=== PATIENT | male | born 2005 | race African-American/Black ===

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

== ENCOUNTER 2025-02-18 03:07 | Emergency (ER) | payer SELFPAY ==
--- OUTSIDE RECORDS SUMMARY | 2025-02-18 03:09 | XMS_ITS | Clinical Summary ---
Author Organization [facility] Address [facility] [place] [address] Care Team Providers Care Skate Shop Attendant Name Role Phone Unavailable Primary Care Provider Unavailabl e Social History Tobacco Use Types Packs/Day Years Used Date Smoking Tobacco: Never Assessed Sex and Gender Information Value Date Recorded Sex Assigned at Not on file Legal Sex Male 4:06 PM CDT Gender Identity Not on file Sexual Orientation Not on file Plan of Treatment Health Maintenance Due Date Last Done Comments Annual Physical 2007 HPV Vaccines (1 - Male 3-dos e series) 2019 Meningococcal B Vaccine (1 o f 2 - Standard) 2020 Hepatitis C 2022 DTaP, Tdap and Td Vaccines ( 1 - Tdap) 2023 Hepatitis B Vaccines (1 of 3 - 19+ 3-dose series) 2023 COVID-19 Vaccine (1 - 2024-2 6 season) 2024 Influenza Adult (#1) 2025 Hepatitis A Vaccines Aged Out No long er eligible based on patient's age to complete this topic Meningococcal Vaccine Aged Out No emory soledad eligible based on patient's age to complete this topic Pneumococcal Vaccine: Pediat rics (0 to 5 Years) and At-Risk Patients (6 to 49 Years) Aged Out No longer eligible b ased on patient's age to complete this topic RSV Immunizations Under 20 Months Aged Out No longer eligible based on patient's age to complete this topic
--- OUTSIDE RECORDS SUMMARY | 2025-02-18 03:09 | XMS_ITS | Patient Health Record ---
Author Organization [facility] Address [address] [place] [address] Care Team Providers Care Curam Developer Name Role Phone Castillo Keeneie Primary Care Provider [phone] Judi Newell Unavailable [phone] Allergies No Known Allergies Reason For Referral No Information Medications Medication SIG (Take, Route, Fr equency, Duration) Notes Start Date End Date Status Atomoxetine HCl 40 MG 1 capsule in the m orning Orally Once a day; Duration: 30 days 07/06/2022 Active Social History Tobacco Use: Social History Observation Description Date Details (start date - stop date) Current Smoker NA - NA Sex Assigned At : Social History Observation Description Sex Assigned At Male Dont use, Tobacco Use/Smoking Question Answer Notes Are you a current smoker Alcohol Screen (Audit-C) Question Answer Notes Did you have a drink containing alcohol in the p ast year? Yes Problems Problem Type SNOMED Code ICD Code Onset Dates Problem Status W/U Status Risk Notes Problem Tobacco user (555534397) Nicotine dependence, unspecified, uncomplicated (F17.200) Active confirmed Problem Attention deficit hyperactivity disorder (102394701) ADHD (attention deficit hyperactivity disorder) (F90.9) Active confirmed Plan Of Treatment No Information Insurance Providers Payer Name Payer Address Payer Phone Subscriber Number Group Number Insured Name Patient Relationship to Insured Coverage Start Date Coverage End Date [address] [phone] [id number] Drake Rosa Self - patient is the insured 3 Medical (General) History Medical History History ICD Code ADHD Surgical History Surgery Date(Month/Year) Hospitalization History Reason Date(Month/Year) Involuntary psychiatric hold 2014
--- OUTSIDE RECORDS SUMMARY | 2025-02-18 03:09 | XMS_ITS | Clinical Summary ---
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 Gender Identity Not on file Sexual Orientation Not on file Last Filed Vital Signs Vital Sign Reading Time Taken Comments Blood Pressure 118/66 10/14/2022 9:58 AM CDT Pulse 70 10/14/2022 9:58 AM CDT Temperature 36.3 C (97.4 F) 10/14/2022 9:58 AM CDT Respiratory Rate 18 10/14/2022 9:58 AM CDT Oxygen Saturation 98% 10/14/2022 9:58 AM CDT Inhaled Oxygen Concentration - - Weight 71.3 kg (157 lb 3.2 oz) 10/14/2022 9:58 A M CDT Height 165.1 cm (5' 5) 10/14/2022 9:58 AM CDT Body Mass Index 26.16 10/14/2022 9:58 AM CDT Plan of Treatment Health Maintenance Due Date Last Done Comments Depression Screening 2004 Hepatitis C Screening 2004 DTaP/Tdap/Td Vaccine (1 - Tdap) 2015 Varicella Vaccines (1 of 2 - 13+ 2-dose series) 2017 HPV Vaccines (1 - Male 3-dos e series) 2019 Meningococcal B Vaccine (1 o f 2 - Standard) 2020 Hepatitis B Screening 2022 Regular Well Visit/Exam 18-64 2022 Covid-19 Vaccine (3 - 2024-2 6 season) 2024 03/06/2021, 02/12/2021 Influenza Vaccine (#1) 2024 Meningococcal Vaccine Aged Out No emory soledad eligible based on patient's age to complete this topic Pneumococcal vaccine <65 Aged Out No longer eligible based on patient's age to complete this topic Care Teams Bacon De Rinder Relationship Specialty Start Date End Date No, Physician PCP - General 02/17/25
--- OUTSIDE RECORDS SUMMARY | 2025-02-18 03:09 | XMS_ITS | Clinical Summary ---
Author Organization [facility] Address [address] [place] [address] Care Team Providers Care Specialties Operator Name Role Phone Devin Holley MD Primary Care Provider [phone] Source Comments [facility],non-owned Affiliates and Associated Physician Practices is amultiple site organization consisting of ambulatory clinics and hospital sitesin [place], [place], [place] and [place]. This disclosure is being madepursuant to the Care Everywhere program and may not contain all information available regarding this patient. Last updated 18.[facility] [employer] Allergies No known active allergies Medications * Be aware that medications may not be up to date on this document. Alwaysverify current medications with the patient. 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 Gender Identity Not on file Sexual Orientation Not on file Last Filed Vital Signs Vital Sign Reading Time Taken Comments Blood Pressure 118/80 06/03/2021 8:24 AM SPEAKER WIRER Pulse 90 06/03/2021 8:24 AM SPEAKER WIRER Temperature 36.6 C (97.9 F) 07/03/2017 4:17 PM CDT Respiratory Rate 16 06/03/2021 8:24 AM SPEAKER WIRER Oxygen Saturation 97% 06/03/2021 8:24 AM SPEAKER WIRER Inhaled Oxygen Concentration - - Weight 66.5 kg (146 lb 9.7 oz) 06/03/2021 8:24 A M SPEAKER WIRER Height 169.7 cm (5' 6.81) 06/03/2021 8:24 AM CS T Body Mass Index 23.09 06/03/2021 8:24 AM SPEAKER WIRER Plan of Treatment Health Maintenance Due Date Last Done Comments HIV SCREENING 2019 HPV VACCINE (1 - Male 3-dose series) 2019 MENINGOCOCCAL (Group B) VACC INE SHARED DECISION-MAKING (1 of 2 - Standard) 2020 HEPATITIS C SCREENING 04/29/2022 DTAP/TDAP/TD VACCINES (1 - Tdap) 2023 HEPATITIS B VACCINE (1 of 3 - 19+ 3-dose series) 2023 DEPRESSION SCREENING 04/17/2024 COVID-19 VACCINE (1 - 2023-2 5 season) 2024 INFLUENZA VACCINE (#1) 2024 ZOSTER VACCINE (1 of 2) 2054 HIB VACCINE Aged Out No longer eligi ble based on patient's age to complete this topic MENINGOCOCCAL GROUPS A/C/Y/W VACCINE Aged Out No longer eligible b ased on patient's age to complete this topic PNEUMOCOCCAL VACCINE Aged Out No long er eligible based on patient's age to complete this topic Insurance [facility] Care Teams Specialties Operator Relationship Specialty Start Date End Date Devin Holley MD [facility] [address] [address] PCP - General Pediatrics 07/03/17
[2025-02-18 03:10] VITALS: BP 142/70; PULSE 68; RESP 20; TEMP 36.7; O2SAT 100
[2025-02-18 07:09] VITALS: BP 136/83; PULSE 82; RESP 16; O2SAT 100
[2025-02-18] MEDS: KETOROLAC 30 MG/ML VIAL (*BKC) IM (07:34)
--- NOTE | 2025-02-18 07:36 | ED_ITS ---
HPI - General Adult General Chief complaint: Unspecified Stated complaint: swollen gland Time Seen by Provider: 02/18/25 07:01 History of Present Illness HPI narrative: For last 2 days patient has had this sore throat, worse on right side; he did have an amoxicillin left over at home and tried taking it. No significant pain with swallowing or breathing, he did tried making an appointment with ENT but it is not until next week Related Data Allergies Allergy/AdvReac Type Severity Reaction Status Date / Time No Known Allergies Allergy Verified 02/18/25 07:09 Review of Systems Review of Systems: All systems reviewed & are unremarkable except as noted in HPI and below PMFSH Past Medical History Medical History No pertinent past medical history Surgical History Surgical History No pertinent past surgical history Family History Family History Father Cerebrovascular accident Social History Social History Smoking status: Never smoker Alcohol intake: never Substance use: never Living arrangements: with family Occupation/Education: student Gender identity (if verbalized by the patient): Male Exam Narrative: EXAMINATION OF ORGAN SYSTEMS/BODY AREAS: Constitutional: Vital signs per nursing GENERAL:[No acute distress, non-toxic appearing.] HEAD: Normal with no signs of head trauma. EYES: EOMI, conjunctiva normal ENT: No trismus, no uvular deviation, on the right tonsil there appears to be a greyish lesion that appears like an ulcer LUNGS: Nonlabored breathing. HEART: [Regular rate and rhythm] ABD: [Soft], [nontender to palpation] EXT: Normal range of motion SKIN: [No rashes or lesions.] NEURO: [Alert and oriented x 3. No gross focal sensory or strength deficits.] PSYCH: Normal affect Course Vital Signs Vital signs: Vital Signs Temperature 98.1 F 02/18/25 03:10 Pulse Rate 68 02/18/25 03:10 Respiratory Rate 20 02/18/25 03:10 Blood Pressure 142/70 H 02/18/25 03:10 Pulse Oximetry 100 02/18/25 03:10 Oxygen Delivery Room Air 02/18/25 03:10 Temperature 98.1 F 02/18/25 03:10 Pulse Rate 82 02/18/25 07:09 Respiratory Rate 16 02/18/25 07:09 Blood Pressure 136/83 02/18/25 07:09 Pulse Oximetry 100 02/18/25 07:09 Oxygen Delivery Room Air 02/18/25 03:10 Medical Decision Making MDM Narrative Medical decision making narrative: Patient presenting with sore throat, on exam he does have some tonsillar swelling and redness, and on the right tonsil does appear to be agree ulcer, I did attempt to see if it was a stone that could be dislodged with gentle pressure from Q-tip but it does appear to be more consistent with ulcer. Strep swabs are negative, however given the appearance, I will treat him with NSAIDs and antibiotics, he is otherwise very well appearing without any difficulty swallowing or breathing, no trismus, no uvular deviation or red flag symptoms, will have him follow-up with ENT in the next 1-2 days with strict return precautions and patient is agreeable to this plan. Vital Signs Vital Signs: Vital Signs Temperature 98.1 F 02/18/25 03:10 Pulse Rate 68 02/18/25 03:10 Respiratory Rate 20 02/18/25 03:10 Blood Pressure 142/70 H 02/18/25 03:10 Pulse Oximetry 100 02/18/25 03:10 Oxygen Delivery Room Air 02/18/25 03:10 Temperature 98.1 F 02/18/25 03:10 Pulse Rate 82 02/18/25 07:09 Respiratory Rate 16 02/18/25 07:09 Blood Pressure 136/83 02/18/25 07:09 Pulse Oximetry 100 02/18/25 07:09 Oxygen Delivery Room Air 02/18/25 03:10 Lab Data Labs: Lab Results 02/18/25 Range/Units 07:08 Influenza A (RT-PCR) Pending Influenza B (RT-PCR) Pending RSV (RT-PCR) Pending SARS-CoV-2 RNA (RT-PCR) Pending Group A Strep (PCR) Not detected (Negative) Discharge Plan Discharge Clinical Impression: Ulcer of tonsil Patient Disposition: Home Condition: Stable Instructions: Antibiotic Form, Tonsillitis (ED) Additional Instructions: Please follow-up with ENT, if you start having worsening symptoms especially if you cannot breathe or swallow or open your mouth, return to the ER immediately. Patient Language: Ukrainian Prescriptions: New ibuprofen 600 mg tablet 600 mg PO TID PRN (Reason: fever or pain) Qty: 30 0RF amoxicillin-pot clavulanate 875-125 mg tablet 1 tablet PO Q12H Qty: 14 0RF No Action prednisone 20 mg tablet 20 mg PO DAILY Qty: 5 0RF hydrocortisone [Anusol-HC] 2.5 % cream with perineal applicator 1 applic RECTAL DAILY PRN (Reason: hemorrhoids) Qty: 30 0RF Follow-up/Referrals: Linus Villarreal MD [Physician, Ear, Nose, Throat] - 2 Days UNKNOWN,DOCTOR [Primary Care Provider] Stand Alone Forms: Work/School Release IP
[2025-02-18 07:38] LABS: Strep Group A RT-PCR NOT DETECTED (Negative)
[2025-02-18 07:50] LABS: Influenza A QL RT-PCR Negative (Negative); Influenza B QL RT-PCR Negative (Negative); RSV RNA, RT-PCR Negative (Negative); SARS-CoV-2 RNA PCR Negative (Negative)
--- OUTSIDE RECORDS SUMMARY | 2025-02-18 08:02 | XMS_ITS | Clinical Summary ---
Author Organization [facility] Address [address] [place] [address] Care Team Providers Care Counselor Marriage And Family Name Role Phone Devin Holley MD Primary Care Provider [phone] Source Comments [facility],non-owned Affiliates and Associated Physician Practices is amultiple site organization consisting of ambulatory clinics and hospital sitesin [place], [place], [place] and [place]. This disclosure is being madepursuant to the Care Everywhere program and may not contain all information available regarding this patient. Last updated 18.[facility] 1calendar Allergies No known active allergies Medications * Be aware that medications may not be up to date on this document. Alwaysverify current medications with the patient. 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 Gender Identity Not on file Sexual Orientation Not on file Last Filed Vital Signs Vital Sign Reading Time Taken Comments Blood Pressure 118/80 06/03/2021 8:24 AM HOUSEKEEPING AIDE Pulse 90 06/03/2021 8:24 AM HOUSEKEEPING AIDE Temperature 36.6 C (97.9 F) 07/03/2017 4:17 PM CDT Respiratory Rate 16 06/03/2021 8:24 AM HOUSEKEEPING AIDE Oxygen Saturation 97% 06/03/2021 8:24 AM HOUSEKEEPING AIDE Inhaled Oxygen Concentration - - Weight 66.5 kg (146 lb 9.7 oz) 06/03/2021 8:24 A M HOUSEKEEPING AIDE Height 169.7 cm (5' 6.81) 06/03/2021 8:24 AM CS T Body Mass Index 23.09 06/03/2021 8:24 AM HOUSEKEEPING AIDE Plan of Treatment Health Maintenance Due Date [...] patient's age to complete this topic Insurance [facility] Care Teams Counselor Marriage And Family Relationship Specialty Start Date End Date Devin Holley MD [facility] [address] [address] PCP - General Pediatrics 07/03/17
--- OUTSIDE RECORDS SUMMARY | 2025-02-18 08:02 | XMS_ITS | Clinical Summary ---
Author Organization [facility] Address [address] [place] [address] Phone Care Team Providers Care Breast Buffer Name Role Phone No, Physician Primary Care Provider [phone] Allergies No known active allergies Medications No known medications Active Problems No known active problems Immunizations Immunization Administration Dates Next Due PPD TEST 10/14/2022 Social History Tobacco Use Types Packs/Day Years Used Date Smoking Tobacco: Never Assessed Sex and Gender Information Value Date Recorded Sex Assigned at Not on file Legal Sex Male 1:[address]GE Gender Identity Not on file Sexual Orientation [...] age to complete this topic Care Teams Breast Buffer Relationship Specialty Start Date End Date No, Physician PCP - General 02/17/25
[2025-02-18 08:17] VITALS: BP 146/82; PULSE 89; RESP 16; TEMP 36.8; O2SAT 99
== END 2025-02-18 08:18 | disposition home or self-care (01) ==
LOC: ANHED 07:56
PROVIDERS: Student in an Organized Health Care Education/Training Program; Emergency Provider Emergency Medicine
DX: J35.8 Other chronic diseases of tonsils and adenoids (principal)
CPT/HCPCS: 87637; 87651; 96372; 99283; J1885